=== PATIENT | female | born 1990 | race Hispanic/Latino ===

== ENCOUNTER 2021-10-16 13:24 | Emergency (ER) | payer OTHER ==
[~2021-10-16 13:24] MED LIST: AUGMENTIN500TAB PO; BACTRIM DS1 TAB PO; CIPROFLOXACN500 MG PO; FERROUS SULF15 MG/ML PO; FERROUS SULF325 M3 PO; FISH OIL1000 MG PO; LEVOTHYROXIN100 MC1 PO; LEVOTHYROXIN125 MCG PO; LEVOTHYROXIN50 MCG PO; MACROBID100 MG PO; OB COMPLET2 PO; TYLENOL325 MG PO; ULTRAM50 M1 PO; VITA-NATAL PO
== END 2021-10-16 13:55 | disposition left against medical advice (07) | DRG 951 ==
LOC: ED 13:24 → LWOBS 13:55
DX: Z53.21 Procedure and treatment not carried out due to patient leaving prior to being seen by health care provider (principal)

== ENCOUNTER 2024-07-10 14:56 | Emergency (ER) | payer SELFPAY ==
[~2024-07-10] VITALS: Ht 149.9 cm; Wt 61.0 kg
[2024-07-10 15:30] VITALS: BP 111/77
[2024-07-10] MEDS ORDERED: SODIUM CHLORIDE 0.9% 1,000 ML IV ONE (15:35)
[2024-07-10] MEDS ORDERED: ONDANSETRON HCl 4 MG/2 ML SDV IV ONE (15:35)
[2024-07-10] MEDS ORDERED: Pantoprazole Sodium 40 MG VIAL (Protonix) IV ONE (15:40)
[2024-07-10] MEDS ORDERED: FAMOTIDINE 10MG/ML 2ML SDV IV ONE (15:40)
[2024-07-10] MEDS ORDERED: ALUM & MAG HYDROX-SIMETHICONE 30 ML PO ONE (15:40)
[2024-07-10] MEDS ORDERED: LIDOCAINE VISCOUS 2% 15 ML UDC PO ONE (15:40)
[2024-07-10 15:53] LABS: URINE BILIRUBIN - DIPSTICK Negative (NEGATIVE); URINE BLOOD DIPSTICK Negative (NEGATIVE); URINE GLUCOSE - DIPSTICK Negative (NEGATIVE); URINE KETONE Negative (NEGATIVE); URINE LEUK ESTERASE Negative (NEGATIVE); URINE NITRITE - DIPSTICK Negative (Negative); URINE PROTEIN - DIPSTICK Negative (NEG-TRACE); URINE SPECIFIC GRAVITY 1.025; URINE UROBILINOGEN - DIPSTICK 0.2 E.U./dL (0.2)
[2024-07-10 15:53] LABS: BASO% 0.4 % (0-3); EOS% 1.7 % (0-8); HEMOGLOBIN 13.3 g/dl (12.0-16.0); IMMATURE GRANULOCYTES 0.2 % (0.0-5.0); LYMPH% 34.3 % (15-41); MEAN CELL VOLUME 86.9 fL CALC (80.0-100.0); MEAN CORPUSCULAR HGB 28.2 pG CALC (26.0-32.0); MEAN CORPUSCULAR HGB CONC 32.4 g/dL CAL (32.0-36.0); NEUT# 4.81 thou/uL (2.00-7.15); NEUT% 57.4 % (42-76); RED BLOOD COUNT 4.72 mill/uL (4.20-5.60); RED CELL DISTRI WIDTH 11.8 % (11.5-15.5)
[2024-07-10 15:54] LABS: URINE COLOR Yellow
[2024-07-10 16:10] LABS: ALBUMIN 4.5 g/dL (3.2-5.0); BILIRUBIN, TOTAL 0.6 mg/dL (0.02-1.3); CREATININE 0.8 mg/dL (0.5-1.0); POTASSIUM 3.9 mmol/l (3.5-5.1); TOTAL PROTEIN 7.4 g/dL (6.3-8.2)
[2024-07-10] MEDS ORDERED: PROTONIX40 M2 PO (17:48)
[2024-07-10 18:20] VITALS: BP 111/77
== END 2024-07-10 18:34 | disposition home or self-care (01) | DRG 392 ==
LOC: ED 14:56
PROVIDERS: Nurse Practitioner
DX: K29.70 Gastritis, unspecified, without bleeding (principal)
CPT/HCPCS: J2470; Q9967

== ENCOUNTER 2024-09-08 10:46 | Emergency (ER) | payer SELFPAY ==
[~2024-09-08] VITALS: Ht 149.9 cm; Wt 61.6 kg
[~2024-09-08 10:46] MED LIST changes: +PROTONIX40 M2 PO
[2024-09-08 11:00] VITALS: BP 102/77
[2024-09-08 11:15] VITALS: BP 88/63
[2024-09-08] MEDS ORDERED: Pantoprazole Sodium 40 MG VIAL (Protonix) IV ONE (11:15)
[2024-09-08 11:22] LABS: BASO% 0.8 % (0-3); EOS% 1.9 % (0-8); HEMATOCRIT 36.3 % (37.0-47.0); HEMOGLOBIN 12.1 g/dl (12.0-16.0); IMMATURE GRANULOCYTES 0.2 % (0.0-5.0); LYMPH% 39.2 % (15-41); MEAN CELL VOLUME 85.8 fL CALC (80.0-100.0); MEAN CORPUSCULAR HGB 28.6 pG CALC (26.0-32.0); MEAN CORPUSCULAR HGB CONC 33.3 g/dL CAL (32.0-36.0); MONO% 6.4 % (2-13); NEUT# 2.67 thou/uL (2.00-7.15); NEUT% 51.5 % (42-76); RED BLOOD COUNT 4.23 mill/uL (4.20-5.60); RED CELL DISTRI WIDTH 11.9 % (11.5-15.5)
[2024-09-08 11:30] VITALS: BP 99/68
[2024-09-08 11:37] LABS: ALBUMIN 4.5 g/dL (3.2-5.0); BILIRUBIN, TOTAL 0.6 mg/dL (0.02-1.3); CREATININE 0.9 mg/dL (0.5-1.0); POTASSIUM 4.1 mmol/l (3.5-5.1); TOTAL PROTEIN 7.7 g/dL (6.3-8.2)
[2024-09-08 12:39] LABS: URINE BILIRUBIN - DIPSTICK Negative (NEGATIVE); URINE BLOOD DIPSTICK Negative (NEGATIVE); URINE GLUCOSE - DIPSTICK Negative (NEGATIVE); URINE KETONE Negative (NEGATIVE); URINE LEUK ESTERASE Trace (NEGATIVE); URINE NITRITE - DIPSTICK Negative (Negative); URINE PROTEIN - DIPSTICK Negative (NEG-TRACE); URINE SPECIFIC GRAVITY 1.025; URINE UROBILINOGEN - DIPSTICK 0.2 E.U./dL (0.2)
[2024-09-08 12:48] LABS: URINE COLOR Yellow
[2024-09-08] MEDS ORDERED: PROTONIX40 M2 PO (13:04)
[2024-09-08 13:25] VITALS: BP 99/68
== END 2024-09-08 13:26 | disposition home or self-care (01) | DRG 392 ==
LOC: ED 10:46
PROVIDERS: Family Medicine
DX: K21.9 Gastro-esophageal reflux disease without esophagitis (principal); E03.9 Hypothyroidism, unspecified; T47.1X6A Underdosing of other antacids and anti-gastric-secretion drugs, initial encounter; Z91.128 Patient's intentional underdosing of medication regimen for other reason
CPT/HCPCS: J2470

== ENCOUNTER 2024-12-13 07:13 | Day surgery (SDC) | payer OTHER ==
[~2024-12-13] VITALS: Ht 149.9 cm; Wt 59.0 kg
[~2024-12-13 07:13] MED LIST changes: +FEROSUL325 MG PO; +VITAMIN C500 M6 PO; +VITAMIN D22000 UNIT PO
[2024-12-13] MEDS ORDERED: SODIUM CHLORIDE 0.9% 1,000 ML IV ONE (07:23)
[2024-12-13] MEDS ORDERED: FAMOTIDINE 10MG/ML 2ML SDV IV ONE (07:23)
[2024-12-13] MEDS ORDERED: PROTONIX40 M2 PO (09:12)
[2024-12-13 09:49] VITALS: BP 108/75
[2024-12-13] MEDS ORDERED: PROPOFOL 200 MG/20 ML VIAL IV ONE (13:44)
[2024-12-13] MEDS ORDERED: GLYCOPYRROLATE 0.2 MG/ML IV ONE (13:44)
== END 2024-12-13 09:47 | disposition home or self-care (01) | DRG 376 ==
LOC: ORM 07:13
PROVIDERS: ATTEND Surgery
PROC: 0DB68ZX Excision of Stomach, Via Natural or Artificial Opening Endoscopic, Diagnostic (ICD-10-PCS; principal; 2024-12-13)
PROC: 3E0G8GC Introduction of Other Therapeutic Substance into Upper GI, Via Natural or Artificial Opening Endoscopic (ICD-10-PCS; 2024-12-13)
DX: C16.6 Malignant neoplasm of greater curvature of stomach, unspecified (principal); K29.70 Gastritis, unspecified, without bleeding; B96.81 Helicobacter pylori [H. pylori] as the cause of diseases classified elsewhere; K21.9 Gastro-esophageal reflux disease without esophagitis; E03.9 Hypothyroidism, unspecified; K59.00 Constipation, unspecified
CPT/HCPCS: J1596